=== PATIENT | male | born 1980 ===

== ENCOUNTER 2024-10-31 00:43 | Emergency (ER) | payer BC, SELFPAY ==
[2024-10-31 00:47] VITALS: BP 128/90
[2024-10-31 01:16] VITALS: BP 123/82
[2024-10-31 01:33] LABS: Urine Albumin Negative (Neg - Trace); Urine Bilirubin Negative (Negative); Urine Character Clear (Clear); Urine Color Yellow; Urine Glucose Negative (Negative); Urine Ketone 3+ (Negative); Urine Leukocyte Negative (Negative); Urine Nitrite Negative (Negative); Urine Occult Blood Negative (Negative); Urine Specific Gravity 1.025 (<1.030); Urine Urobilinogen Negative (Neg - 1+)
[2024-10-31 01:44] LABS: % Basophils 0.7 % (0-2); % Immature Granulocytes 0.6 % (0-0.5); % Lymphocytes 31.1 % (20.5-51.1); % Monocytes 9.9 % (1.7-9.3); % Neutrophils 54.7 % (42.2-75.2); Absolute Basophils 0.1 10^3/uL (0-0.2); Absolute Eosinophils 0.2 10^3/uL (0-0.7); Absolute Lymphocytes 2.2 10^3/uL (1.2-3.4); Absolute Monocytes 0.7 10^3/uL (0.1-0.6); Absolute Neutrophils 3.8 10^3/uL (1.4-6.5); Hematocrit 44.4 % (39.0-52.0); Hemoglobin 15.5 g/dL (13.0-18.0); Mean Corp Hgb Conc. 34.9 g/dL (33.0-37.0); Mean Corpuscular Hgb 29.8 pg (27.0-31.0); Mean Corpuscular Volume 85.2 fL (80.0-94.0); Nucleated Red Blood Cells % 0 % (-); Platelet Count 248 10^3/uL (130-400); Red Blood Cell Count 5.21 10^6/uL (4.70-6.10); Red Cell Dist. Width 12.3 % (11.5-14.5)
--- NOTE | 2024-10-31 01:44 | ED.GENMED ---
History of Present Illness
<Jennifer Rodriguez MD, Resident - Last Filed: 10/31/24 06:01>
General
Chief Complaint: Abdominal Pain
Time Seen by Provider: 10/31/24 01:13
History of Present Illness
History of Present Illness:
This is a 44-year-old male who presents to the ED complaining of left lower quadrant pain. Patient reports symptoms started on 1 hour after he had lunch. Reports pain was a 4 out of 10 prominent in the left lower abdominal quadrant. He
denies fevers, chills, nausea, vomiting. Reports he had a similar pain in 2020 when he was diagnosed with diverticulitis. He states he had 3 episodes of diverticulitis in 2020, diagnosed with CT scan and follows GI as an outpatient for management
of diverticulitis with medication cocktail (does not remember name). At the time of examination, he reports his pain is a 3 out of 10. He decided to come to the ED for evaluation due to history of microperforation with prior diverticulitis
episodes.
Review of Systems
<Jennifer Rodriguez MD, Resident - Last Filed: 10/31/24 06:01>
Review of Systems
All Other Systems: ROS reviewed and negative except as documented in HPI and ROS
Phy Exam
<Jennifer Rodriguez MD, Resident - Last Filed: 10/31/24 06:01>
General Physical Exam
General Presentation: well appearing and no apparent distress
Cardiovascular Exam
Cardiovascular Exam: regular rate/rhythm and no edema
Pulmonary Exam
Pulmonary Exam: lungs clear, no respiratory distress, no rales, no crackles and no rhonchi
Gastrointestinal Exam
Gastrointestinal Exam: normal bowel sounds, soft, non distended and tender (Tenderness to palpation of the left lower quadrant)
Musculoskeletal Exam
Musculoskeletal Exam: full ROM
Psychiatric Exam
Psychiatric Exam: normal mood/affect
Course
<Jennifer Rodriguez MD, Resident - Last Filed: 10/31/24 06:01>
Orders/Labs/Results
Orders:
Orders
10/31/24 00:53
IV Insert/Care/Rem.- Treatment PRN
10/31/24 01:23
Complete Blood Count/With Diff Urgent
Comprehensive Metabolic Panel Urgent
Lipase Urgent
Urinalysis Reflex To Culture Urgent
Date Specimen was Collected: 10/31/24
Time Specimen was Collected: 00:53
10/31/24 01:59
CT Abd/Pel (IV only)-[facility] only Urgent
Comment:
Reason For Exam: abdominal pain, LLQ
10/31/24 03:48
LevoFLOXacin [Levaquin] 500 mg PO NOW STA
MetroNIDAZOLE [Flagyl] 500 mg PO NOW STA
Abnormal Lab Results
10/31/24
01:23
Absolute Monos (auto) 0.7 H 10^3/uL
(0.1-0.6)
Immature Gran % 0.6 H %
(0-0.5)
Monocytes % 9.9 H %
(1.7-9.3)
BUN 21 H mg/dl
(9-20)
Total Bilirubin 1.6 H mg/dl
(0.2-1.3)
Urine Ketones 3+ A
(Negative)
10/31/24 01:23
10/31/24 01:23
Vital Signs
Initial and Last Documented VS:
Initial Vital Signs
Temp Pulse Resp BP Pulse Ox
98.6 F 71 20 128/90 99
10/31/24 00:47 10/31/24 00:47 10/31/24 00:47 10/31/24 00:47 10/31/24 00:47
Last Documented Vital Signs
Temp Pulse Resp BP Pulse Ox
98.6 F 72 20 115/88 98
10/31/24 00:47 10/31/24 04:37 10/31/24 04:37 10/31/24 03:13 10/31/24 04:37
<Vera Croft, DO - Last Filed: 10/31/24 03:54>
Orders/Labs/Results
Orders:
Orders
10/31/24 00:53
IV Insert/Care/Rem.- Treatment PRN
10/31/24 01:23
Complete Blood Count/With Diff Urgent
Comprehensive Metabolic Panel Urgent
Lipase Urgent
Urinalysis Reflex To Culture Urgent
Date Specimen was Collected: 10/31/24
Time Specimen was Collected: 00:53
10/31/24 01:59
CT Abd/Pel (IV only)-[facility] only Urgent
Comment:
Reason For Exam: abdominal pain, LLQ
10/31/24 03:48
LevoFLOXacin [Levaquin] 500 mg PO NOW STA
MetroNIDAZOLE [Flagyl] 500 mg PO NOW STA
Abnormal Lab Results
10/31/24
01:23
Absolute Monos (auto) 0.7 H 10^3/uL
(0.1-0.6)
Immature Gran % 0.6 H %
(0-0.5)
Monocytes % 9.9 H %
(1.7-9.3)
BUN 21 H mg/dl
(9-20)
Total Bilirubin 1.6 H mg/dl
(0.2-1.3)
Urine Ketones 3+ A
(Negative)
10/31/24 01:23
10/31/24 01:23
Vital Signs
Initial and Last Documented VS:
Initial Vital Signs
Temp Pulse Resp BP Pulse Ox
98.6 F 71 20 128/90 99
10/31/24 00:47 10/31/24 00:47 10/31/24 00:47 10/31/24 00:47 10/31/24 00:47
Last Documented Vital Signs
Temp Pulse Resp BP Pulse Ox
98.6 F 72 20 115/88 98
10/31/24 00:47 10/31/24 04:37 10/31/24 04:37 10/31/24 03:13 10/31/24 04:37
<Vera Croft DO - Last Filed: 10/31/24 03:54>
*Radiology
Radiology exam reviewed: radiology read reviewed
*Pulse Oximetry
Patient hypoxic: no
*Critical Care Note
Total Time (30-74mins, 75-104mins- exclusive of procedures): Not Applicable
ED Attending Note
<Jennifer Rodriguez MD, Resident - Last Filed: 10/31/24 06:01>
-
Portions of this chart may have been created with voice recognition software.� Occasional wrong word or��sound alike� substitutions may have occurred due to the inherent limitations of voice recognition software.
<Vera Croft DO - Last Filed: 10/31/24 03:54>
ED Attending Note
Patient seen and examined by attending physician: Yes
I performed a history and physical exam of patient and discussed management with resident, I reviewed resident's note and agree with documented findings and plan of care.: Yes
ED Attending Note:
44-year-old gentleman with history of diverticulitis having had 3 episodes in 2020, 1 of which noted to have microperforation of the sigmoid colon. Initially treated with Augmentin without resolution but did well with a course of Vantin/Flagyl. He
had been following with a education faculty member at [facility] and since 2020 has been doing quite well with no recurrent flares until 3 days ago when he developed left lower quadrant pain that felt similar to previous episodes of
diverticulitis. He immediately limited his diet to clear liquid since then and admits that pain has improved but has not resolved.
No fever no chills, no nausea or vomiting. No diarrhea or constipation.
He has history of right inguinal hernia repair. Admits to intermittent right inguinal discomfort most noted after performing strenuous activity, lifting etc which he did so a week ago. Right inguinal discomfort has been improving over the past
week. He denies feeling a bulge nor lump. No testicular pain or swelling.
44-year-old gentleman appears his stated age, bright and alert, pleasant, appears in no acute distress. Afebrile. Vital signs within normal limits.
Abdomen is soft with mild tenderness left lower quadrant without rebound or guarding no rigidity. No palpable masses.
Concern for recurrent diverticulitis.
Other concern is recurrent right inguinal hernia versus right inguinal strain.
Will check labs, CT abdomen pelvis.
03:50
Labs are reassuring.
CAT scan shows mild uncomplicated sigmoid diverticulitis. No evidence of abscess or free air.
Will treat with a course of Vantin/Flagyl as patient has done well with this in the past. For this a.m. however we will give a one-time dose of Levaquin/Flagyl to initiate antibiotic coverage.
Recommend continuing with clear liquid diet over the next 2 days then advance to soft foods.
Follow-up with education faculty member for recheck.
Discharge Plan
Departure
Patient Disposition: Home (Routine Discharge)
Date of Disposition: 10/31/24
Time of Disposition: 03:50
Patient with high blood pressure during this ER visit?: No
Condition: Good
Discharge Problem:
Diverticulitis of sigmoid colon
Instructions: Diverticulitis - Discharge instructions
Prescriptions:
New
cefpodoxime 200 mg tablet
200 mg PO BID Qty: 20 0RF
metronidazole 500 mg tablet
500 mg PO TID Qty: 30 0RF
No Action
pantoprazole 40 mg Tablet,Delayed Release (Dr/Ec)
40 mg PO BID
duloxetine
40 mg PO DAILY
Referrals:
Lefi Carreno, [Family Provider] -
Interventions
Interventions:
*Risk Screen - Suicide Last Done: 10/31/24 00:47
*General Assessment Last Done: 10/31/24 00:47
*Neglect/Abuse Screening Last Done: 10/31/24 00:47
*ED- Fall Risk Assessment Last Done: 10/31/24 00:47
*ED COVID-19 Vaccine History Last Done: 10/31/24 00:47
*Nursing Disposition Last Done: 10/31/24 04:38
XG-Bjlzgo-Rspprdktye Assessment Last Done: 10/31/24 02:12
Discharge Date and Time
Discharge Date/Time: 10/31/24 04:39
Print Language: FINNISH
[2024-10-31 01:47] LABS: ALT (SGPT) 25 U/L (0-50); AST (SGOT) 28 U/L (17-59); Albumin 4.4 g/dl (3.5-5.0); Alkaline Phosphatase 88 U/L (38-126); Blood Urea Nitrogen 21 mg/dl (9-20); Calcium 9.7 mg/dl (8.4-10.2); Carbon Dioxide 26 mmol/L (22-30); Chloride 103 mmol/L (98-107); Glucose 93 mg/dl (70-99); Lipase 58 U/L (23-300); Sodium 139 mmol/L (135-145); Total Bilirubin 1.6 mg/dl (0.2-1.3); Total Protein 6.9 g/dl (6.3-8.2); eGFR > 60.00
[2024-10-31 02:11] VITALS: BMI 33.4
[2024-10-31 03:13] VITALS: BP 115/88
[2024-10-31] MEDS: FLAGYL 500 MG PO (04:06)
[2024-10-31] MEDS: LEVAQUIN 500 MG PO (04:07)
== END 2024-10-31 04:39 | disposition home or self-care (01) ==
LOC: EMR 00:43
PROVIDERS: EMERGENCY PHYSICIAN Emergency Medicine; FAMILY PHYSICIAN Internal Medicine
DX: K57.32 Diverticulitis of large intestine without perforation or abscess without bleeding (principal); Z88.5 Allergy status to narcotic agent
CPT/HCPCS: 99284; 74177; 80053; 81003; 83690; 85025; Q9967